=== PATIENT | female | born 2005 | race Two or more races ===

== ENCOUNTER 2024-12-27 21:11 | Emergency (ER) | payer MEDICAID, OTHER ==
[~2024-12-27] VITALS: Ht 160 cm; Wt 70.7 kg
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
[2024-12-27] MEDS ORDERED: IBUP-1456 PO (23:03)
[2024-12-27 23:06] VITALS: BP 105/70; PULSE 67; RESP 17; TEMP 98.5; O2SAT 98
== END 2024-12-27 23:06 | disposition home or self-care (01) ==
LOC: ER 21:11
DX: S13.4XXA Sprain of ligaments of cervical spine, initial encounter (principal); S46.912A Strain of unspecified muscle, fascia and tendon at shoulder and upper arm level, left arm, initial encounter; S80.01XA Contusion of right knee, initial encounter; S90.31XA Contusion of right foot, initial encounter; Z79.899 Other long term (current) drug therapy; V86.55XA Driver of 3- or 4- wheeled all-terrain vehicle (ATV) injured in nontraffic accident, initial encounter; Y93.89 Activity, other specified; Y92.89 Other specified places as the place of occurrence of the external cause; Y99.8 Other external cause status
CPT/HCPCS: 72040; 73030; 73562; 73630